=== PATIENT | male | born 1995 | race Two or more races ===

== ENCOUNTER 2019-02-05 00:54 | Emergency (ER) | payer OTHER ==
[~2019-02-05] VITALS: Ht 170.2 cm; Wt 65.8 kg
[2019-02-05 01:05] VITALS: BP 116/74
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
== END 2019-02-05 02:22 | disposition home or self-care (01) ==
LOC: ER 00:54
DX: Z20.5 Contact with and (suspected) exposure to viral hepatitis (principal)
CPT/HCPCS: 86703; 86705; 86709; 86803; 87340; 99284